=== PATIENT | female | born 1995 | race Caucasian/White ===

== ENCOUNTER 2018-06-05 05:35 | Emergency (ER) | payer SELFPAY ==
[~2018-06-05] VITALS: Ht 167.6 cm; Wt 48.2 kg
[2018-06-05 06:46] VITALS: BP 100/61
== END 2018-06-05 06:47 | disposition home or self-care (01) ==
LOC: ER 05:35
DX: N93.9 Abnormal uterine and vaginal bleeding, unspecified (principal); N92.0 Excessive and frequent menstruation with regular cycle; D64.9 Anemia, unspecified
CPT/HCPCS: 81025; 99283

== ENCOUNTER 2018-10-19 14:12 | Emergency (ER) | payer MEDICAID ==
[~2018-10-19] VITALS: Ht 160 cm; Wt 52.0 kg
[2018-10-19 14:25] VITALS: BP 102/58
[2018-10-19 18:52] LABS: CLARITY URINE CLEAR (CLEAR); COLOR URINE YELLOW (YELLOW); KETONES URINE NEGATIVE (NEGATIVE); LEUKOCYTE ESTERASE URINE 1+ (NEGATIVE); NITRITE URINE NEGATIVE (NEGATIVE); OCCULT BLOOD URINE NEGATIVE (NEGATIVE); PROTEIN URINE NEGATIVE (NEGATIVE); SPECIFIC GRAVITY URINE 1.006 (1.005-1.030); UROBILINOGEN URINE 0.2 E.U./dL (0.2-1.0)
== END 2018-10-19 18:44 | disposition left against medical advice (07) ==
LOC: ER 15:58
DX: Z53.21 Procedure and treatment not carried out due to patient leaving prior to being seen by health care provider (principal)